=== PATIENT | male | born 1980 | race Two or more races ===

== ENCOUNTER 2024-11-17 10:40 | Emergency (ER) | payer OTHER ==
[~2024-11-17] VITALS: Ht 172.7 cm; Wt 104.3 kg
[2024-11-17] MEDS ORDERED: IBUPROFEN 400 MG TABLET ONE (11:18)
[2024-11-17] MEDS: IBUPROFEN 400 MG TABLET PO ONE (11:21)
[2024-11-17] MEDS ORDERED: CIPROFLOXACIN HCL 500 MG TABLET ONE (12:31)
[2024-11-17] MEDS: CIPROFLOXACIN HCL 500 MG TABLET PO ONE (12:53)
[2024-11-17] MEDS ORDERED: CIPR-262 PO (12:55)
[2024-11-17 13:02] VITALS: BP 116/68; TEMP 98.1; O2SAT 99
[2024-11-17 13:15] LABS: APPEARANCE,URINE TURBID (CLEAR); BILIRUBIN,URINE 1+ (NEGATIVE); BLOOD, URINE TRACE-INTA Ery/uL (NEGATIVE); COLOR,URINE YELLOW (YELLOW); KETONES,URINE NEGATIVE (NEGATIVE); LEUKOCYTE ESTERASE ,URINE 3+ (NEGATIVE); NITRITE, URINE POSITIVE (NEGATIVE); PH,URINE >8.5 (5.0-8.0); PROTEIN,URINE 3+ mg/dl (NEGATIVE); UGLUCOSE NEGATIVE (NEGATIVE)
[2024-11-17 13:37] LABS: RBC,URINE 0-2 /HPF (0-2)
[2024-11-17 13:38] LABS: BACTERIA,URINE Many /HPF (None Seen)
[2024-11-17 13:50] LABS: ADD URINE CULTURE YES
[2024-11-17 13:52] LABS: TRIPLE PHOSPHATE CRYSTAL,UR Many /HPF (None Seen)
[2024-11-18] MEDS ORDERED: CIPR-262 PO (14:41)
[2024-11-18] MEDS ORDERED: PHEN-895 PO (14:44)
[2024-11-18] MEDS ORDERED: KETO10TA2 PO (14:44)
[2024-11-18 20:09] LABS: CHLAMYDIA TRACHOMATIS NAA Negative (Negative); NEISSERIA GONORRHOEAE NAA Negative (Negative)
== END 2024-11-17 13:03 | disposition left against medical advice (07) ==
LOC: ER 10:50
DX: N39.0 Urinary tract infection, site not specified (principal); G82.20 Paraplegia, unspecified; M19.90 Unspecified osteoarthritis, unspecified site
CPT/HCPCS: 81001; 87086-TC; 87186-TC; 87491; 87591

== ENCOUNTER 2024-11-18 13:46 | Emergency (ER) | payer OTHER ==
[~2024-11-18] VITALS: Ht 172.7 cm; Wt 104.3 kg
[~2024-11-18 13:46] MED LIST: CIPR-262 PO
[2024-11-18] MEDS ORDERED: CIPR-262 PO (14:41)
[2024-11-18] MEDS ORDERED: KETO10TA2 PO (14:44)
[2024-11-18] MEDS ORDERED: PHEN-895 PO (14:44)
[2024-11-18] MEDS ORDERED: KETOROLAC TROMETHAMINE INJ 30 MG/ML VIAL ONE (15:25)
[2024-11-18] MEDS: KETOROLAC TROMETHAMINE INJ 30 MG/ML VIAL IM ONE (15:32)
[2024-11-18 15:57] VITALS: BP 130/77; TEMP 98.8; O2SAT 95
== END 2024-11-18 15:58 | disposition home or self-care (01) ==
LOC: ER 13:47
DX: N39.0 Urinary tract infection, site not specified (principal); G82.20 Paraplegia, unspecified; M19.90 Unspecified osteoarthritis, unspecified site
CPT/HCPCS: 99284; 96372; J1885